=== PATIENT | female | born 1980 | race Asian ===

== ENCOUNTER 2021-12-09 11:04 | Emergency (ER) | payer OTHER, SELFPAY ==
[2021-12-09 11:20] VITALS: BP 133/86; PULSE 88; RESP 18; TEMP 36.7; O2SAT 99; BMI 34.4
--- NOTE | 2021-12-09 12:19 | CRLHL7_ITS ---
For Patients: As a result of the Cures Act, medical imaging exams and procedure reports are released immediately into your electronic medical record. You may view this report before your referring provider. If you have questions, please contact your health care provider. INDICATION: BUG BITE ON 11/27/21, FLEW 9 HOURS ON 11/28/21, leg pain COMPARISON: None. TECHNIQUE: A compression venous ultrasound exam was performed of the left lower extremity using garcia-scale imaging, color Doppler and spectral Doppler analysis. FINDINGS: Sonographic imaging of the left lower extremity demonstrates normal compressibility and color Doppler venous blood flow within the common femoral vein, deep femoral vein, and the proximal greater saphenous vein. Within the thigh, the femoral vein is patent and compressible. At a lower level, the popliteal and posterior tibial veins also show normal compressibility and color Doppler venous blood flow. Limited imaging of the contralateral groin demonstrates a normal spectral waveform and color Doppler venous blood flow within the right common femoral vein. There is subcutaneous thickening noted adjacent to the bug bite extending cephalad. A large left proximal medial thigh lymph node is present measuring 5.6 x 3.4 x 1.6 cm with a thickened hypoechoic cortex measuring 1.1 cm. IMPRESSION: No evidence of deep vein thrombosis within the left lower extremity. Sonographic findings suggest cellulitis with large reactive left proximal medial thigh lymph node. No drainable abscess. Dictated by Shantanu Arrington MD @ 12/09/2021 1:58:15 PM (Electronically Signed)
--- NOTE | 2021-12-09 13:33 | ED.GENADULT ---
HPI - General Adult General Time Seen by Provider: 12:00 Date Seen: 12/09/21 Chief complaint: Unspecified Complaint, Adult Stated complaint: Bug Bite on leg Time Seen by Provider: 12/09/21 12:06 Source: patient History of Present Illness HPI narrative: 41-year-old [place] speaking woman seen with the assistance of online edge [employer] for evaluation of a painful left leg. About 10 days ago she had a sore near her medial malleolus of her left ankle. Possibly a bug bite. She has subsequently developed pain going up the medial side of her leg all the way to her groin. She has not had a fever. The sores not draining. She has not had any previous problems like this. She does not have diabetes. Related Data Previous Rx's Medication Instructions Recorded cephalexin 500 mg capsule 500 mg PO QID 7 Days #28 cap 12/09/21 Allergies Allergy/AdvReac Type Severity Reaction Status Date / Time No Known Drug Allergies Allergy Verified 12/09/21 11:20 Review of Systems Narrative: She reports no other symptoms of illness. No dyspnea, fever, chest pain, abdominal pain. She is otherwise well. She has no chronic medical problems. No medications. No allergies. She denies any chance of . PFSH [facility] Social History Smoking Status: Never smoker Do you use any of these nicotine containing products: None Second hand tobacco smoke exposure: No How often do you have a drink containing alcohol: never How often do you have six or more drinks on one occasion: Never AUDIT-C Alcohol total score: 0 Non-prescribed substance use: denies use service: No Exam Narrative: Exam Narrative: Legs are examined. Patient has a 3 x 4 mm ulcer just posterior to her medial malleolus of the left ankle. No drainage. Surrounding erythema of about 1 cm. No significant erythema extending proximal from there. She has some mild patches of erythema on the dorsum of both feet. A few other erythematous lesions scattered over her lower legs and feet possibly representing healing bug bites. She indicates on her left leg on the medial calf and medial thigh where she has pain with palpation. I do not palpate a cord. She has no significant edema in either leg. She has intact pedal pulses. No external signs of trauma. Const: Vital Signs, click to edit/add: Vital Signs - 24 hr 12/09/21 11:20 Temperature 98.0 F Pulse Rate [Right Pulse Oximeter] 88 Respiratory Rate 18 Blood Pressure [Ri ght Upper Arm] 133/86 Pulse Oximetry 99 Documenting provider has reviewed patient's vital signs: yes Course Vital Signs Vital signs: Initial Vital Signs Temperature 98.0 F 12/09/21 11:20 Temperature Source Temporal Artery Scan 12/09/21 11:20 Pulse Rate 88 12/09/21 11:20 Respiratory Rate 18 12/09/21 11:20 Blood Pressure 133/86 12/09/21 11:20 Blood Pressure Mean 101 12/09/21 11:20 Blood Pressure Position Sitting 12/09/21 11:20 Pulse Oximetry 99 12/09/21 11:20 Oxygen Delivery Method 12/09/21 11:20 Vital Signs Temperature 98.0 F 12/09/21 11:20 Pulse Rate 88 12/09/21 11:20 Respiratory Rate 18 12/09/21 11:20 Blood Pressure 133/86 12/09/21 11:20 Pulse Oximetry 99 12/09/21 11:20 Temperature 98.0 F 12/09/21 11:20 Pulse Rate 88 12/09/21 11:20 Respiratory Rate 18 12/09/21 11:20 Blood Pressure 133/86 12/09/21 11:20 Pulse Oximetry 99 12/09/21 11:20 Medical Decision Making Differential Diagnosis Differential Diagnosis: DVT, lymphangitis, cellulitis, Discharge Plan Discharge Clinical Impression: Lymphangitis Patient Disposition: Home, Self-Care Additional Instructions: the pain you feel an year leg may be due to infection spreading up from your ankle. I will treat you with an antibiotic, cephalexin, to take 4 times a day. See your doctor if you are not better in 3 days or if you are getting worse. this antibiotic can cause upset stomach or diarrhea. If you have severe upset stomach or severe diarrhea he must stop the antibiotic and return to the emergency room for more testing. Activity Level: No Restrictions Prescriptions: New cephalexin 500 mg capsule 500 mg PO QID 7 Days Qty: 28 0RF Follow Up/Referrals: Provider,Not a Local [Primary Care Provider] - Stand Alone Forms: MyHealth Info Instructions
[2021-12-09 13:39] VITALS: RESP 18
== END 2021-12-09 14:12 | disposition home or self-care (01) ==
PROVIDERS: Emergency Provider Family Medicine
DX: I89.1 Lymphangitis (principal)
CPT/HCPCS: 93971; 99282; 99283